=== PATIENT | female | born 1975 | race Caucasian/White ===

== ENCOUNTER 2018-09-10 10:02 | Emergency (ER) | payer OTHER ==
[2018-09-10] MEDS ORDERED: TETRACAINE HCL 0.5% 2ML OPTH ONE (10:52)
[2018-09-10] MEDS ORDERED: FLUORESCEIN SODIUM 0.6 MG/WRAP ONE (10:52)
--- NOTE | 2018-09-10 11:16 | RAD REPORT ---
EXAM DESCRIPTION: CT - Head Brain Wo Cont - 09/10/2018 11:01 am CLINICAL HISTORY: headache, blurred vision COMPARISON: No comparisons TECHNIQUE: All CT scans are performed using dose optimization technique as appropriate and may inclu de automated exposure control or mA/KV adjustment according to patient size. FINDINGS: No intracranial hemorrhage, hydrocephalus or extra-axial fluid collection.No areas of brai n edema or evidence of midline shift. The paranasal sinuses and mastoids are clear. The calvarium is intact. IMPRESSION: No acute intracranial abnormality.
--- NOTE | 2018-09-10 11:36 | EDPHYS ---
Physician Documentation [facility] Name: Jailyn Velazquez Age: 43 yrs Sex: Female : 1975 Arrival Date: 09/10/2018 Time: 10:07 Bed 12 Private MD: Jacob Taveras V ED Physician Kosta Pompa HPI: 09/10 10:26 This 43 yrs old Female presents to ER via Ambulatory with complaints of Eye jmm Pain. 10:26 The patient is experiencing pain, redness. Onset: The symptoms/episode began/occurred jmm gradually, 1 day(s) ago. Duration: the symptoms are continuous. Aggravated by opening eye. Associated signs and symptoms: Pertinent positives: headache. This is a 43 year old female with a history of add/adhd that presents to the ED with complaints of left eye pain, blurred vision, headache beginning 1 day ago. Blurred vision developed when she awoke this morning at 0400. . 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 - Social history:: Smoking status: Patient uses tobacco products, smokes one-half pack cigarettes per day. - Ebola Screening: : No symptoms or risks identified at this time. ROS: 10:26 Constitutional: Negative for fever, chills, and weight loss. jmm 10:26 Eyes: Positive for blurry vision, pain. 10:26 Neuro: Positive for headache. 10:26 All other systems are negative. Exam: 10:26 Visual Acuity: I have reviewed the nursing documentation. jmm 10:26 Constitutional: This is a well developed, well nourished patient who is awake, alert, and in no acute distress. Head/Face: atraumatic. 10:26 ENT: Moist Mucus Membranes Neck: Trachea midline, Supple Chest/axilla: Normal chest wall appearance and motion. Cardiovascular: Regular rate and rhythm. No edema appreciated Respiratory: Normal respirations, no respiratory distress appreciated Abdomen/GI: Non distended, soft Back: Normal ROM Skin: General appearance color normal MS/ Extremity: Moves all extremities, no obvious deformities appreciated, no edema noted to the lower extremities Neuro: Awake and alert, normal gait Psych: Behavior is normal, Mood is normal, Patient is cooperative and pleasant 10:26 Eyes: Extraocular movements: intact throughout, Conjunctiva: injected, in the left eye, Corneas: abrasion, that is moderate sized, on the left, at 7 o'clock, foreign body, is not appreciated, a fluorescein strip employed to appreciate the findings, Sclera: Vital Signs: 10:20 BP 117 / 84; Pulse 91; Resp 16; Temp 97.8; Pulse Ox 100% on R/A; Pain 10/10; ss Visual Acuity: 10:45 Left Eye Visual acuity 20/25, ; Right Eye Visual acuity 20/15, ; Both Eyes Visual hb acuity 20/13; Without Lenses; MDM: 10:26 Patient medically screened. snw 10:26 Data reviewed: vital signs, nurses notes, radiologic studies, CT scan. Counseling: I ofrtino had a detailed discussion with the patient and/or guardian regarding: the historical points, exam findings, and any diagnostic results supporting the discharge/admit diagnosis, radiology results, the need for outpatient follow up, to return to the emergency department if symptoms worsen or persist or if there are any questions or concerns that arise at home. ED course: PE findings consistent with abrasion. patient wears contact lenses. is advised to take lenses out and follow up with ophthalmology due to increased risk of pseudomonal infection. patient is otherwise given strict return precautions. patient understood and agrees with the plan of care. . 09/10 10:42 Order name: CT Head Brain wo Cont; Complete Time: 11:21 [facility] 09/10 10:26 Order name: Visual Acuity; Complete Time: 10:45 [facility] 09/10 10:26 Order name: Eye Tray; Complete Time: 10:45 [facility] 09/10 10:26 Order name: Fluoresene Opth strip; Complete Time: 10:45 [facility] Administered Medications: 10:51 Drug: Tetracaine Drops 0.5 % 1 drops {Note: administered by Delfin DALEY} Route: hb Ophthalmic; Site: left eye; Disposition: 18:53 Co-signature as Attending Physician, Kosta Pompa MD. rn Disposition: 02/13/19 11:35 Discharged to Home. Impression: Injury of conjunctiva and corneal abrasion without foreign body. - Condition is Stable. - Discharge Instructions: Corneal Abrasion. - Prescriptions for Ocuflox 0.3 % Ophthalmic Drops - instill 2 drop by OPHTHALMIC route every 6 hours for 2 days; 15 milliliter. - Medication Reconciliation Form, Thank You Letter, Antibiotic Education, Prescription Opioid Use, Work release form form. - Follow up: Harrison Fong MD; When: Tomorrow; Reason: Recheck today's complaints, Continuance of care, Re-evaluation by your physician. Follow up: Dina Rolle MD; When: Tomorrow; Reason: Recheck today's complaints, Continuance of care, Re-evaluation by your physician. Follow up: Reji Fong MD; When: Tomorrow; Reason: Recheck today's complaints, Continuance of care, Re-evaluation by your physician. Signatures: Dispatcher [employer] EDMS Isabella Fam, GO-C COMPUTER HARDWARE DEVELOPER-CsnDelfin Jose PA PA jmm Nieto, Roman, MD MD rn Smirch, Shelby, RN RN ss Baxter, Heather, RN RN Corrections: (The following items were deleted from the chart) 11:45 11:35 09/10/2018 11:35 Discharged to Home. Impression: Injury of conjunctiva and ss corneal abrasion without foreign body. Condition is Stable. Forms are Medication Reconciliation Form, Thank You Letter, Antibiotic Education, Prescription Opioid Use. Follow up: Harrison Fong; When: Tomorrow; Reason: Recheck today's complaints, Continuance of care, Re-evaluation by your physician. Follow up: Dina Rolle; When: Tomorrow; Reason: Recheck today's complaints, Continuance of care, Re-evaluation by your physician. Follow up: Reji Fong; When: Tomorrow; Reason: Recheck today's complaints, Continuance of care, Re-evaluation by your physician. fortino
--- NOTE | 2018-09-10 11:36 | ER ---
Nurse's Notes [facility] Name: Jailyn Velazquez Age: 43 yrs Sex: Female : 1975 Arrival Date: 09/10/2018 Time: 10:07 Bed 12 Private MD: Jacob Taveras V Diagnosis: Injury of conjunctiva and corneal abrasion without foreign body Presentation: 09/10 10:18 Presenting complaint: Left eye pain and redness x 2 days. Denies injury. Transition of ss care: patient was not received from another setting of care. Mechanism of Injury: No Mechanism of Injury. The patient denies any loss of vision. Onset of symptoms was September 09, 2018. Risk Assessment: Do you want to hurt yourself or someone else? Patient reports no desire to harm self or others. Care prior to arrival: None. 10:18 Method Of Arrival: Ambulatory ss 10:18 Acuity: ADAN 4 ss 11:45 Initial Sepsis Screen: Does the patient meet any 2 criteria? No. Patient's initial ss sepsis screen is negative. Does the patient have a suspected source of infection? No. Patient's initial sepsis screen is negative. Triage Assessment: 11:45 General: Appears. 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 - Social history:: Smoking status: Patient uses tobacco products, smokes one-half pack cigarettes per day. - Ebola Screening: : No symptoms or risks identified at this time. Screenin:45 Abuse screen: Denies threats or abuse. Denies injuries from another. Nutritional hb screening: No deficits noted. Tuberculosis screening: No symptoms or risk factors identified. Fall Risk None identified. Assessment: 11:45 Reassessment: Patient appears in no apparent distress at this time. Patient and/or ss family updated on plan of care and expected duration. Pain level reassessed. Patient is alert, oriented x 3, equal unlabored respirations, skin warm/dry/pink. Vital Signs: 10:20 BP 117 / 84; Pulse 91; Resp 16; Temp 97.8; Pulse Ox 100% on R/A; Pain 10/10; ss Visual Acuity: 10:45 Left Eye Visual acuity 20/25, ; Right Eye Visual acuity 20/15, ; Both Eyes Visual hb acuity 20/13; Without Lenses; ED Course: 10:07 Patient arrived in ED. sb2 10:07 Jacob Taveras MD is Private Physician. sb2 10:19 Triage completed. ss 10:20 Arm band placed on right wrist. ss 10:26 Isabella Fam FNP-C is PHCP. snw 10:26 Kosta Pompa MD is Attending Physician. snw 10:26 PHCP role handed off by Isabella Fam FNP-C jm 10:26 Delfin Rosario PA is PHCP. jmm 10:45 Patient has correct armband on for positive identification. Call light in reach. hb 10:51 Mareil Cleary, ANH is Primary Nurse. hb 10:52 CT completed. Patient tolerated procedure well. Patient moved to CT via wheelchair. jg6 Patient moved back from CT. 10:59 CT Head Brain wo Cont In Process Unspecified. EDMS 11:34 Harrison Fong MD is Referral Physician. jmm 11:35 Dina Rolle MD is Referral Physician. jmm 11:35 Reji Fong MD is Referral Physician. jmm 11:41 No provider procedures requiring assistance completed. Patient did not have IV access ss during this emergency room visit. Administered Medications: 10:51 Drug: Tetracaine Drops 0.5 % 1 drops {Note: administered by Delfin THOMPSON.} Route: hb Ophthalmic; Site: left eye; Outcome: 11:35 Discharge ordered by MD. m 11:45 Discharged to home ambulatory. ss 11:45 Condition: good 11:45 Discharge instructions given to patient, Instructed on discharge instructions, follow up and referral plans. medication usage, Demonstrated understanding of instructions, follow-up care, medications, Prescriptions given X 1. 11:45 Patient left the ED. ss Signatures: Dispatcher [employer] EDMS Isabella Fam FNP-C MITER SAWYER-Csnw Delfin Rosario PA PA jmm Smirch Veena, RN RN ss Mariel Cleary RN RN Faith Fuentes sb2 Angeline Kamara6
== END 2018-09-10 11:45 | disposition home or self-care (01) ==
LOC: ER 10:02
DX: S05.02XA Injury of conjunctiva and corneal abrasion without foreign body, left eye, initial encounter (principal); X58.XXXA Exposure to other specified factors, initial encounter; R51 Headache; F90.9 Attention-deficit hyperactivity disorder, unspecified type; Z79.899 Other long term (current) drug therapy
CPT/HCPCS: 70450; 99284